=== PATIENT | male | born 2000 | race Asian ===

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

== ENCOUNTER 2022-02-02 09:24 | Emergency (ER) | payer OTHER ==
[~2022-02-02] VITALS: Ht 170.2 cm; Wt 56.7 kg
--- NOTE | 2022-02-02 09:24 | NUR ---
BROUGHT BACK TO BED #2 AND TRIAGED.REPORT GIVEN TO NURSE
[2022-02-02 09:25] VITALS: BP_SYST 135
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
--- NOTE | 2022-02-02 10:15 | NUR ---
TAKEN TO RADIOLOGY VIA WHEELCHAIR
[2022-02-02] MEDS ORDERED: IBUP-1969 PO (12:04)
--- NOTE | 2022-02-02 12:35 | NUR ---
INITIATED SI PROTOCAL, ROOM 5 NOT AVAILABLE BCS OF A COVID POS PATIENT. HAD TO PLACE PT IN BED ROOM IN FRONT OF NURSES STATION, PT HAS ACTIVE SI PLAN, REMOVED ALL CABLES AND EQUIPMENT THAT WAS REMOVABLE. SECURITY CAME AND WANDED THE PATIENT AND TOOK ALL BELONGING IN TWO BAGS TO SECURITY OFFICE. PT HAS PAIR OF SHORTS, SHIRT, BLACK SNEAKERS, BLACK SOCKS, WALLET WITH $34 DOLLARS, AND MOBILE PHONE.
--- NOTE | 2022-02-02 12:58 | NUR ---
ATHLETIC COORDINATOR CONTACTED PSYCH CONSULT AND 1:1 SITTER PLACED WITH PATIENT AO 125
[2022-02-02 13:34] LABS: ANION GAP 5 (5-15); CALCIUM 9.3 mg/dL (8.4-11.0); CHLORIDE 103 mmol/L (98-107); CREATININE 0.86 mg/dL (0.55-1.30); GLUCOSE 89 mg/dL (70-99); POTASSIUM 3.9 mmol/L (3.5-5.1); SODIUM SERUM 139 mmol/L (136-145); UREA NITROGEN, BLOOD 16 mg/dL (8-21)
[2022-02-02 13:36] LABS: GFR AFRICAN AMERICAN 142 mL/min (>90)
[2022-02-02 13:37] LABS: BASOPHILS % (AUTO) 0.5 % (0.0-2.0); EOSINOPHILS # (AUTO) 0.1 K/uL (0.0-0.4); EOSINOPHILS % (AUTO) 0.7 % (0.0-4.0); HEMOGLOBIN 13.7 g/dL (14.0-18.0); LYMPHOCYTES # (AUTO) 2.3 K/uL (1.0-5.5); LYMPHOCYTES % (AUTO) 29.2 % (20.5-51.5); MEAN CORPUSCULAR HEMOGLOBIN 32 pg (27-31); MEAN CORPUSCULAR HGB CONC 34 % (32-36); MEAN CORPUSCULAR VOLUME 96 fL (79.0-98.0); MONOCYTES # (AUTO) 0.4 K/uL (0.0-1.0); MONOCYTES % (AUTO) 4.9 % (1.7-9.3); NEUTROPHILS # (AUTO) 5.1 K/uL (1.8-7.7); NEUTROPHILS % (AUTO) 64.7 % (40.0-70.0); PLATELET COUNT (AUTO) 197 K/uL (130-430); RED BLOOD CELL COUNT(AUTO) 4.26 MIL/uL (4.2-6.2); RED CELL DISTRIBUTION WIDTH 13.2 % (9.0-15.0); WHITE BLOOD COUNT (AUTO) 7.9 K/uL (4.8-10.8)
[2022-02-02 13:39] LABS: ALANINE AMINOTRANSFERASE 16 U/L (12-78); ALBUMIN 4.5 g/dL (3.4-4.8); ASPARTATE AMINOTRANSFERASE 19 U/L (10-37)
[2022-02-02 13:49] LABS: ACETAMINOPHEN < 1 ug/mL (1-30); ALCOHOL, BLOOD < 3 mg/dL (<10)
--- NOTE | 2022-02-02 13:49 | NUR ---
URINE AND COVID SPECIMEN SENT TO LAB.
[2022-02-02 13:52] LABS: BILIRUBIN,URINE NEGATIVE (NEGATIVE); BLOOD, URINE NEGATIVE (NEGATIVE); CLARITY/URINE CLEAR (CLEAR); COLOR,URINE YELLOW (YELLOW); GLUCOSE,URINE NEGATIVE (NEGATIVE); KETONES,URINE NEGATIVE (NEGATIVE); LEUKOCYTE ESTERASE ,URINE NEGATIVE (NEGATIVE); NITRITE, URINE NEGATIVE (NEGATIVE); PROTEIN URINE NEGATIVE (NEGATIVE)
[2022-02-02 14:18] LABS: BARBITURATE, URINE NEGATIVE (NEG <=200); BENZODIAZEPINE, URINE NEGATIVE (NEG <=150); CANNABINOID, URINE NEGATIVE (NEG <=50); COCAINE, URINE NEGATIVE (NEG <=150); METHAMPHETAMINES SCREEN,URINE NEGATIVE (NEG <=500); OPIATE, URINE POSITIVE (NEG <=100); PHENCYCLIDINE SCREEN,URINE NEGATIVE (NEG <=25); UR TRICYCLIC ANTIDEPRESSANTS NEGATIVE (NEG <=300); URINE AMPHETAMINE NEGATIVE (NEG <=500); URINE METHADONE NEGATIVE (NEG <=200); URINE OXYCODONE SCREEN NEGATIVE (NEG <=100); URINE PROPOXYPHENE SCREEN NEGATIVE (NEG <=300)
--- NOTE | 2022-02-02 18:18 | NUR ---
PET TEAM CALLED THAT THEY WILL BE HERE AROUND [phone]
--- NOTE | 2022-02-02 19:25 | NUR ---
Received pt up in bed in NAD. Mother at bedside. Denies any SI at this time. Appears in cheerful mood. VSS. Pending PET team arrival at this time.
--- NOTE | 2022-02-02 20:40 | NUR ---
PET team at bedside with pt. Addendum: 02/02/22 at 2058 by [id number] Evalutation in progress.
--- NOTE | 2022-02-02 20:59 | NUR ---
Per PET team, no HOLD is required at this time. Pt does not meet criteria.
[2022-02-02 21:44] VITALS: BP_SYST 123
--- NOTE | 2022-02-02 21:44 | NUR ---
Patient given written and verbal discharge instructions and verbalizes understanding. ER MD LONGORIA discussed with patient the results and treatment provided. Patient in stable condition. ID arm band removed. Rx of Motrin sent to pharmacy of choice. Patient educated on pain management and to follow up with PMD. Pain Scale 0/10 upon discharge. Opportunity for questions provided and answered. Medication side effect fact sheet provided.
== END 2022-02-02 21:43 | disposition home or self-care (01) ==
LOC: SED 09:24
DX: S16.1XXA Strain of muscle, fascia and tendon at neck level, initial encounter (principal); S06.0X0A Concussion without loss of consciousness, initial encounter; S20.212A Contusion of left front wall of thorax, initial encounter; S40.012A Contusion of left shoulder, initial encounter; R07.9 Chest pain, unspecified; Z79.899 Other long term (current) drug therapy; Z20.822 Contact with and (suspected) exposure to COVID-19; V49.40XA Driver injured in collision with unspecified motor vehicles in traffic accident, initial encounter; Y93.89 Activity, other specified; Y92.89 Other specified places as the place of occurrence of the external cause; Y99.8 Other external cause status
CPT/HCPCS: 99284; 71045; 87426; 80307; 80053; 85025; 36415; 73030; 81003; G0482; G0480; G0481